=== PATIENT | female | born 1960 | race Caucasian/White ===

== ENCOUNTER 2017-02-04 18:30 | Emergency (ER) | payer BC ==
[2017-02-04] MEDS ORDERED: Naloxone 2 MG/2 ML Syringe ONE (18:41)
[2017-02-04] MEDS ORDERED: Sodium Chloride 0.9% 1,000 ML IV ONE ×2 (19:00→19:55)
[2017-02-04] MEDS ORDERED: Flumazenil 0.1 MG/ML 5 ML MDV ONE ×3 (19:01→19:17)
[2017-02-04] MEDS ORDERED: Flumazenil 0.1 MG/ML 5 ML MDV IVPUSH ONE ×2 (19:02→19:08)
[2017-02-04] MEDS ORDERED: Ondansetron 4 MG/2 ML SDV ONE ×2 (19:05→19:13)
--- NOTE | 2017-02-04 19:19 | EDM.PDOC ---
ED HPI GENERAL MEDICAL PROBLEM - General Chief Complaint: Neuro Symptoms/Deficits Stated Complaint: [facility] Time Seen by Provider: 02/04/17 18:34 Source of Information: Reports: Patient, EMS, EMS Notes Reviewed History Limitations: Reports: Altered Mental Status - History of Present Illness INITIAL COMMENTS - FREE TEXT/NARRATIVE: Patient is a 56-year-old female who was found by her at approximately 1725 laying face first on the deck. Patient was unconscious difficult to arouse. was concerned she may have had a stroke. No foul play was suspected. 911 was called and ambulance arrived to find the patient with an altered mental status concerning for stroke. Initially O2 sats were 80% on room air. Patient was placed on oxygen and received Narcan 2 mg IV. Patient's mentation and O2 sats improved. spoke with the patient at 1625 with no concerns at that point. Patient is a known alcoholic and user of benzodiazepines and narcotics. 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 Last known time the patient was well was at 1625. Patient has no history of suicidal mediations, suicide attempts, inpatient treatment for chemical dependency/psych. Patient sees a provider at [facility] and also [facility] to obtain prescriptions for benzodiazepines/narcotics. Past medical history: Alcoholic, anxiety, depression, addiction to benzodiazepines, hypertension Current medications include alprazolam 1 mg as needed, Klonopin 0.2 mg by mouth twice a day, Ativan 1 mg 3 times a day, Lopressor 50 mg twice a day. Right Hand Pain Score (Numeric/FACES): 5 - Related Data Allergies Allergy/AdvReac Type Severity Reaction Status Date / Time No Known Allergies Allergy Verified 02/04/17 19:49 Home Meds: Home Meds ALPRAZolam [Alprazolam] 1 dose PO ASDIRECTED 02/04/17 [History] ClonazePAM [KlonoPIN] 0.2 dose PO BID 02/04/17 [History] LORazepam [Ativan] 1 mg PO TID PRN 02/04/17 [History] Metoprolol Tartrate [Lopressor] 50 mg PO BID 02/04/17 [History] ED ROS GENERAL - Review of Systems Review Of Systems: See Below Respiratory: Reports: Cough, Sputum. Denies: Shortness of Breath Cardiovascular: Denies: Chest Pain GI/Abdominal: Denies: Abdominal Pain, Nausea, Vomiting : Denies: Dysuria Musculoskeletal: Reports: Other (right thumb pain. ) Skin: Reports: Other (Superficial abrasions to the left cheek, forehead, chin, right shoulder, knees bilaterally, right hand. Minimal swelling present. No pain with palpation. No bony abnormalities. Mild pain with palpation of the right thumb. ) Neurological: Reports: Confusion ED EXAM, NEURO - Physical Exam Exam: See Below Exam Limited By: Intoxication General Appearance: Lethargic Eye Exam: Bilateral Eye: EOMI, Nystagmus (none found), PERRL Ears: Normal External Exam, Normal Canal, Hearing Grossly Normal Nose: Normal Inspection, Normal Mucosa, No Blood, Other (Nasolabial folds are intact.) Throat/Mouth: Normal Teeth, No Airway Compromise, Other (no tongue trauma. Uvula midline. ). No: Normal Voice (slurred speech) Head Exam: Facial Swelling, Facial Tenderness Neck: Normal Inspection, Supple, Non-Tender, Other (C collar in place.) Respiratory/Chest: Lungs Clear, Normal Breath Sounds, No Accessory Muscle Use, Chest Non-Tender, Other (Increased respiratory rate) Cardiovascular: Normal Peripheral Pulses, No Murmur, Tachycardia GI/Abdominal: Normal Bowel Sounds, Soft, Non-Tender, No Organomegaly, No Distention Neurological: Normal Dorsiflexion, CN II-XII Intact, Normal Plantar Flexion, No Motor/Sensory Deficits, Other (Lethargic, moves all extremities, equal yard brakeman bilaterally to the upper extremities, no weakness noted to the lower extremities. Sensory/motor intact.). No: Oriented x 3 Back Exam: Normal Inspection. No: Paraspinal Tenderness, Vertebral Tenderness Extremities: Normal Range of Motion, No Pedal Edema, Normal Capillary Refill, Other (Mild tenderness to the right thumb. No tenderness noted with palpation to the extremities with palpation.) Skin Exam: Warm, Dry, Normal Color, No Rash Course - Vital Signs Last Recorded V/S: Last Vital Signs Temp 97.8 F 02/04/17 22:30 Pulse 106 H 02/04/17 22:30 Resp 18 02/04/17 22:30 BP 122/80 02/04/17 22:30 Pulse Ox 94 L 02/04/17 22:30 - Orders/Labs/Meds Orders: Active Orders 24 hr Category Date Time Status EKG Documentation Completion [RC] STAT Care 02/04/17 18:39 Active Cervical Spine wo Cont [CT] Stat Exams 02/04/17 18:39 Taken Chest 1V Frontal [CR] Stat Exams 02/04/17 18:39 Taken Fingers Thumb Rt F5 [CR] Stat Exams 02/04/17 18:39 Taken Head wo Cont [CT] Stat Exams 02/04/17 18:39 Taken Labs: Laboratory Tests 02/04/17 02/04/17 02/04/17 Range/Units 18:50 18:50 18:50 WBC 8.19 (3.98-10.04) K/mm3 RBC 4.59 (3.98-5.22) M/mm3 Hgb 14.1 (11.2-15.7) gm/L Hct 42.4 (34.1-44.9) % MCV 92.4 (79.4-94.8) fl MCH 30.7 (25.6-32.2) pg MCHC 33.3 (32.2-35.5) g/dl RDW Std Deviation 43.2 (36.4-46.3) fL Plt Count 302 (182-369) K/mm3 MPV 9.2 L (9.4-12.3) fl Neut % (Auto) 63.0 (34.0-71.1) % Lymph % (Auto) 30.4 (19.3-51.7) % [place] % (Auto) 5.0 (4.7-12.5) % Eos % (Auto) 1.2 (0.7-5.8) Baso % (Auto) 0.2 (0.1-1.2) % Neut # (Auto) 5.15 (1.56-6.13) K/mm3 Lymph # (Auto) 2.49 (1.18-3.74) K/mm3 [place] # (Auto) 0.41 H (0.24-0.36) K/mm3 Eos # (Auto) 0.10 (0.04-0.36) K/mm3 Baso # (Auto) 0.02 (0.01-0.08) K/mm3 PT 10.4 (8.0-13.0) SECONDS INR 0.96 APTT 27 (22-36) SECONDS Puncture Site ABG pH (7.35-7.45) ABG pCO2 (35.0-45.0) mmHg ABG pO2 (80.0-100.0) mmHg ABG HCO3 (22.0-26.0) meq/L ABG O2 Saturation (96.0-97.0) % ABG Base Excess (-2-2.0) Neto Test A-a Gradient mmHg O2 Delivery Device Sodium 138 (136-145) mEq/L Potassium 3.1 L (3.5-5.1) mEq/L Chloride 102 (98-107) mEq/L Carbon Dioxide 26 (21-32) mEq/L Anion Gap 13.1 (5-15) BUN 11 (7-18) mg/dL Creatinine 0.9 (0.55-1.02) mg/dL Est Cr Clr Drug Dosing 57.74 mL/min Estimated GFR (MDRD) > 60 (>60) mL/min BUN/Creatinine Ratio 12.2 L (14-18) Glucose 98 (74-106) mg/dL POC Glucose (70-105) mg/dL Calcium 9.0 (8.5-10.1) mg/dL Magnesium (1.8-2.4) mg/dl Total Bilirubin 0.2 (0.2-1.0) mg/dL AST 23 (15-37) U/L ALT 32 (14-59) U/L Alkaline Phosphatase 71 (46-116) U/L Creatine Kinase (26-192) U/L Troponin I < 0.017 (0.00-0.056) ng/mL C-Reactive Protein 0.3 (<1.0) mg/dL Total Protein 7.2 (6.4-8.2) g/dl Albumin 3.8 (3.4-5.0) g/dl Globulin 3.4 gm/dL Albumin/Globulin Ratio 1.1 (1-2) TSH 3rd Generation 0.436 (0.358-3.74) uIU/mL Urine Color (Yellow) Urine Appearance (Clear) Urine pH (5.0-8.0) Ur Specific [place] (1.005-1.030) Urine Protein (Negative) Urine Glucose (UA) (Negative) Urine Ketones (Negative) Urine Occult Blood (Negative) Urine Nitrite (Negative) Urine Bilirubin (Negative) Urine Urobilinogen (0.2-1.0) Ur Leukocyte Esterase (Negative) Urine RBC (0-5) /hpf Urine WBC (0-5) /hpf Ur Epithelial Cells (0-5) /hpf Urine Bacteria (FEW) /hpf Urine Mucus (FEW) /hpf Urine Opiates Screen (NEGATIVE) Ur Buprenorphine Scrn (NEGATIVE) Ur Oxycodone Screen (NEGATIVE) Urine Methadone Screen (NEGATIVE) Ur Propoxyphene Screen (NEGATIVE) Ur Barbiturates Screen (NEGATIVE) Ur Tricyclics Screen (NEGATIVE) Ur Phencyclidine Scrn (NEGATIVE) Ur Amphetamine Screen (NEGATIVE) U Methamphetamines Scrn (NEGATIVE) U Benzodiazepines Scrn (NEGATIVE) U Cocaine Metab Screen (NEGATIVE) U Marijuana (THC) Screen (NEGATIVE) Ethyl Alcohol 0.24 (0.00) gm% 02/04/17 02/04/17 02/04/17 Range/Units 18:50 18:50 18:50 WBC (3.98-10.04) K/mm3 RBC (3.98-5.22) M/mm3 Hgb (11.2-15.7) gm/L Hct (34.1-44.9) % MCV (79.4-94.8) fl MCH (25.6-32.2) pg MCHC (32.2-35.5) g/dl RDW Std Deviation (36.4-46.3) fL Plt Count (182-369) K/mm3 MPV (9.4-12.3) fl Neut % (Auto) (34.0-71.1) % Lymph % (Auto) (19.3-51.7) % [place] % (Auto) (4.7-12.5) % Eos % (Auto) (0.7-5.8) Baso % (Auto) (0.1-1.2) % Neut # (Auto) (1.56-6.13) K/mm3 Lymph # (Auto) (1.18-3.74) K/mm3 [place] # (Auto) (0.24-0.36) K/mm3 Eos # (Auto) (0.04-0.36) K/mm3 Baso # (Auto) (0.01-0.08) K/mm3 PT (8.0-13.0) SECONDS INR APTT (22-36) SECONDS Puncture Site ABG pH (7.35-7.45) ABG pCO2 (35.0-45.0) mmHg ABG pO2 (80.0-100.0) mmHg ABG HCO3 (22.0-26.0) meq/L ABG O2 Saturation (96.0-97.0) % ABG Base Excess (-2-2.0) Neto Test A-a Gradient mmHg O2 Delivery Device Sodium (136-145) mEq/L Potassium (3.5-5.1) mEq/L Chloride (98-107) mEq/L Carbon Dioxide (21-32) mEq/L Anion Gap (5-15) BUN (7-18) mg/dL Creatinine (0.55-1.02) mg/dL Est Cr Clr Drug Dosing mL/min Estimated GFR (MDRD) (>60) mL/min BUN/Creatinine Ratio (14-18) Glucose (74-106) mg/dL POC Glucose 103 (70-105) mg/dL Calcium (8.5-10.1) mg/dL Magnesium 1.8 (1.8-2.4) mg/dl Total Bilirubin (0.2-1.0) mg/dL AST (15-37) U/L ALT (14-59) U/L Alkaline Phosphatase (46-116) U/L Creatine Kinase 126 (26-192) U/L Troponin I (0.00-0.056) ng/mL C-Reactive Protein (<1.0) mg/dL Total Protein (6.4-8.2) g/dl Albumin (3.4-5.0) g/dl Globulin gm/dL Albumin/Globulin Ratio (1-2) TSH 3rd Generation (0.358-3.74) uIU/mL Urine Color (Yellow) Urine Appearance (Clear) Urine pH (5.0-8.0) Ur Specific [place] (1.005-1.030) Urine Protein (Negative) Urine Glucose (UA) (Negative) Urine Ketones (Negative) Urine Occult Blood (Negative) Urine Nitrite (Negative) Urine Bilirubin (Negative) Urine Urobilinogen (0.2-1.0) Ur Leukocyte Esterase (Negative) Urine RBC (0-5) /hpf Urine WBC (0-5) /hpf Ur Epithelial Cells (0-5) /hpf Urine Bacteria (FEW) /hpf Urine Mucus (FEW) /hpf Urine Opiates Screen (NEGATIVE) Ur Buprenorphine Scrn (NEGATIVE) Ur Oxycodone Screen (NEGATIVE) Urine Methadone Screen (NEGATIVE) Ur Propoxyphene Screen (NEGATIVE) Ur Barbiturates Screen (NEGATIVE) Ur Tricyclics Screen (NEGATIVE) Ur Phencyclidine Scrn (NEGATIVE) Ur Amphetamine Screen (NEGATIVE) U Methamphetamines Scrn (NEGATIVE) U Benzodiazepines Scrn (NEGATIVE) U Cocaine Metab Screen (NEGATIVE) U Marijuana (THC) Screen (NEGATIVE) Ethyl Alcohol (0.00) gm% 02/04/17 02/04/17 02/04/17 Range/Units 19:18 19:25 19:25 WBC (3.98-10.04) K/mm3 RBC (3.98-5.22) M/mm3 Hgb (11.2-15.7) gm/L Hct (34.1-44.9) % MCV (79.4-94.8) fl MCH (25.6-32.2) pg MCHC (32.2-35.5) g/dl RDW Std Deviation (36.4-46.3) fL Plt Count (182-369) K/mm3 MPV (9.4-12.3) fl Neut % (Auto) (34.0-71.1) % Lymph % (Auto) (19.3-51.7) % [place] % (Auto) (4.7-12.5) % Eos % (Auto) (0.7-5.8) Baso % (Auto) (0.1-1.2) % Neut # (Auto) (1.56-6.13) K/mm3 Lymph # (Auto) (1.18-3.74) K/mm3 [place] # (Auto) (0.24-0.36) K/mm3 Eos # (Auto) (0.04-0.36) K/mm3 Baso # (Auto) (0.01-0.08) K/mm3 PT (8.0-13.0) SECONDS INR APTT (22-36) SECONDS Puncture Site Rt radial ABG pH 7.37 (7.35-7.45) ABG pCO2 39.3 (35.0-45.0) mmHg ABG pO2 79.0 L (80.0-100.0) mmHg ABG HCO3 22.2 (22.0-26.0) meq/L ABG O2 Saturation 95.6 L (96.0-97.0) % ABG Base Excess -2.2 L (-2-2.0) Neto Test Positive A-a Gradient 102 mmHg O2 Delivery Device Cannula Sodium (136-145) mEq/L Potassium (3.5-5.1) mEq/L Chloride (98-107) mEq/L Carbon Dioxide (21-32) mEq/L Anion Gap (5-15) BUN (7-18) mg/dL Creatinine (0.55-1.02) mg/dL Est Cr Clr Drug Dosing mL/min Estimated GFR (MDRD) (>60) mL/min BUN/Creatinine Ratio (14-18) Glucose (74-106) mg/dL POC Glucose (70-105) mg/dL Calcium (8.5-10.1) mg/dL Magnesium (1.8-2.4) mg/dl Total Bilirubin (0.2-1.0) mg/dL AST (15-37) U/L ALT (14-59) U/L Alkaline Phosphatase (46-116) U/L Creatine Kinase (26-192) U/L Troponin I (0.00-0.056) ng/mL C-Reactive Protein (<1.0) mg/dL Total Protein (6.4-8.2) g/dl Albumin (3.4-5.0) g/dl Globulin gm/dL Albumin/Globulin Ratio (1-2) TSH 3rd Generation (0.358-3.74) uIU/mL Urine Color Light yellow (Yellow) Urine Appearance Clear (Clear) Urine pH 6.0 (5.0-8.0) Ur Specific [place] 1.020 (1.005-1.030) Urine Protein Negative (Negative) Urine Glucose (UA) Negative (Negative) Urine Ketones Negative (Negative) Urine Occult Blood Negative (Negative) Urine Nitrite Negative (Negative) Urine Bilirubin Negative (Negative) Urine Urobilinogen 0.2 (0.2-1.0) Ur Leukocyte Esterase Negative (Negative) Urine RBC Not seen (0-5) /hpf Urine WBC 0-5 (0-5) /hpf Ur Epithelial Cells 0-5 (0-5) /hpf Urine Bacteria Not seen (FEW) /hpf Urine Mucus Not seen (FEW) /hpf Urine Opiates Screen Negative (NEGATIVE) Ur Buprenorphine Scrn Negative (NEGATIVE) Ur Oxycodone Screen Negative (NEGATIVE) Urine Methadone Screen Negative (NEGATIVE) Ur Propoxyphene Screen Negative (NEGATIVE) Ur Barbiturates Screen Negative (NEGATIVE) Ur Tricyclics Screen Negative (NEGATIVE) Ur Phencyclidine Scrn Negative (NEGATIVE) Ur Amphetamine Screen Negative (NEGATIVE) U Methamphetamines Scrn Negative (NEGATIVE) U Benzodiazepines Scrn Presumptive positive H (NEGATIVE) U Cocaine Metab Screen Negative (NEGATIVE) U Marijuana (THC) Screen Negative (NEGATIVE) Ethyl Alcohol (0.00) gm% Meds: Medications Discontinued Medications Generic Name Dose Route Start Last Admin Trade Name Freq PRN Reason Stop Dose Admin Flumazenil Confirm 02/04/17 19:01 02/04/17 20:09 Romazicon Administered 02/04/17 19:02 Not Given Dose 1 mg .ROUTE .STK-MED ONE Flumazenil Confirm 02/04/17 19:17 02/04/17 20:09 Romazicon Administered 02/04/17 19:18 Not Given Dose 0.5 mg .ROUTE .STK-MED ONE Flumazenil Confirm 02/04/17 19:13 02/04/17 20:09 Romazicon Administered 02/04/17 19:14 Not Given Dose 1 mg .ROUTE .STK-MED ONE Flumazenil 0.5 mg 02/04/17 19:02 02/04/17 19:02 Romazicon IVPUSH 02/04/17 19:03 0.5 mg ONETIME ONE Administration Flumazenil 0.5 mg 02/04/17 19:08 02/04/17 19:08 Romazicon IVPUSH 02/04/17 19:09 0.5 mg ONETIME ONE Administration Sodium Chloride 1,000 mls @ 999 mls/hr 02/04/17 19:00 02/04/17 19:00 Normal Saline IV 02/04/17 20:00 999 mls/hr ONETIME ONE Administration Sodium Chloride 1,000 mls @ 999 mls/hr 02/04/17 19:55 02/04/17 19:55 Normal Saline IV 02/04/17 20:55 999 mls/hr ONETIME ONE Administration Naloxone HCl Confirm 02/04/17 18:41 02/04/17 20:09 Narcan Administered 02/04/17 18:42 Not Given Dose 2 mg .ROUTE .STK-MED ONE Naloxone HCl 0.5 mg 02/04/17 18:55 02/04/17 18:55 Narcan IVPUSH 02/04/17 18:56 0.5 mg ONETIME ONE Administration Naloxone HCl 0.5 mg 02/04/17 19:00 02/04/17 19:00 Narcan IVPUSH 02/04/17 19:01 0.5 mg ONETIME ONE Administration Ondansetron HCl Confirm 02/04/17 19:05 02/04/17 20:09 Zofran Administered 02/04/17 19:06 Not Given Dose 4 mg .ROUTE .STK-MED ONE Ondansetron HCl Confirm 02/04/17 19:13 02/04/17 20:09 Zofran Administered 02/04/17 19:14 Not Given Dose 4 mg .ROUTE .STK-MED ONE Ondansetron HCl 4 mg 02/04/17 20:03 02/04/17 19:11 Zofran IVPUSH 02/04/17 20:04 4 mg ONETIME ONE Administration - Re-Assessments/Exams Free Text/Narrative Re-Assessment/Exam: Patient arrives via ambulance fully spinal immobilized. Patient is a GCS of 10 with slurred speech and increased respirations. Dried vomit noted to her face. Vital signs: Blood pressure 123/92, heart rate 110, respiratory rate 31, SPO2 96 % on nasal cannula 4 L/m. Patient is moving all extremities. Patient received in total 1 mg of Narcan and 1 mg of Romazicon IVP. Patient's mentation status improved. She came more alert and was able to answer all questions appropriate. She moved all extremities. Nasolabial fold intact. 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 No concerns for stroke. Patient vomited and was placed in the right side with airway suctioned. Zofran 4 mg IVP ordered. Labs reviewed: CBC is essentially normal. Coags within normal limits. Sodium 138 , potassium mildly low at 3.1, AG is 13.1, creatinine 0.9 glucose 98, liver function tests are within normal limits, troponin less than 0.017, CRP 0.3, TSH is 0.436, UA negative for infection. Toxicology screen positive for benzodiazepines. Serum EtOH 0.24. Blood gas obtained with a pH of 7.37, PCO2 of 39.3, PO2 79, O2 saturations at 95.6, base excess -2.2. CT of the cervical spine impression: Degenerative changes. No acute osseous abnormality. CT of the head without contrast impression no acute intracranial advise noted. Chest x-ray reviewed with Dr. Jennings with no acute findings. Final interpretation pending. X-ray of the thumb did not reveal any acute bony abnormalities. EKG sinus rhythm at a rate of [address] changes noted. 2100 Patient's vital signs have been stable. Mentation improving. Patient is alert and oriented 3. She does not want inpatient treatment for alcohol or chemical dependency. Patient states she did not intentionally take her medications with alcohol to try and kill herself. 02/04/17 21:[address] Che senior applications architect hospitalists. He will see the patient in the E.D. [id number]/04/[id number] Dr. Che spoke with and sister. Family has elected to take the patient home. will take the patient's prescription medications away and ensure patient is not consuming alcohol. He will control all her prescription medications. Plan is to have the patient see her PCP Monday as scheduled to discuss placement into [facility] for outpatient chemical dependency treatment. Dr. Che answered all questions in detail. See consult note for further details. 2200 Patient alert and notes 3. Vital signs are stable. Patient got up on her own accord and ambulated with no difficulties. We'll discharge patient home with instructions as documented. Departure - Departure Time of Disposition: 22:06 Disposition: Home, Self-Care 01 Condition: Fair Clinical Impression: Alcohol abuse, Benzodiazepine abuse Alcohol intoxication Qualifiers: Complication of substance-induced condition: uncomplicated Qualified Code(s): F10.920 - Alcohol use, unspecified with intoxication, uncomplicated Overdose of benzodiazepine Qualifiers: Encounter type: initial encounter Injury intent: accidental or unintentional Qualified Code(s): T42.4X1A - Poisoning by benzodiazepines, accidental ( unintentional), initial encounter - Discharge Information Instructions: Alcohol Intoxication, [id number], Drug Overdose Referrals: PCP,None [Primary Care Provider] - Forms: ED Department Discharge Additional Instructions: Will have your be in control of all your home medications ensuring that you are taking appropriately. If you consume alcohol none of these medications should be administered except for the metoprolol. Follow-up with your PCP this Monday to discuss treatment for alcohol and chemical dependency. Beware combination of alcohol and benzodiazepines use can lead to . Fortunately this evening your found and prevented your . If you need you need any further assistance please return back to the ED. No driving this evening. - My Orders Last 24 Hours: My Active Orders 02/04/17 18:39 EKG Documentation Completion [RC] STAT Cervical Spine wo Cont [CT] Stat Chest 1V Frontal [CR] Stat Fingers Thumb Rt F5 [CR] Stat Head wo Cont [CT] Stat - Assessment/Plan Last 24 Hours: My Active Orders 02/04/17 18:39 EKG Documentation Completion [RC] STAT Cervical Spine wo Cont [CT] Stat Chest 1V Frontal [CR] Stat Fingers Thumb Rt F5 [CR] Stat Head wo Cont [CT] Stat
[2017-02-04] MEDS ORDERED: Ondansetron 4 MG/2 ML SDV IVPUSH ONE (20:03)
[2017-02-04 23:24] VITALS: BP 122/80
--- NOTE | 2017-02-05 18:24 | CR ---
Right thumb: Three views of the right thumb were obtained. Comparison: No previous thumb study. Joint spaces are maintained. No discrete fracture, dislocation or other bony abnormality is identified. Impression: 1. No abnormality is identified on right thumb study. Diagnostic code #1
--- NOTE | 2017-02-05 18:24 | CR ---
Chest: Frontal view of the chest was obtained. Comparison: No prior chest x-ray. Heart size and mediastinum are within normal limits. Slight increased density within the left upper chest is seen. Uncertain if this is real or due to artifact from patient rotation. Lungs otherwise are clear. Bony structures show scoliosis within the spine. Impression: 1. Slight increased density within the left upper chest, uncertain if this is real or due to artifact from rotation. If patient's symptoms warrant further imaging, two-view chest x-ray would be helpful. 2. Other incidental findings. Diagnostic code #3
--- NOTE | 2017-02-05 18:24 | CT ---
CT cervical spine Technique: Multiple axial sections were obtained from above C1 inferiorly to the bottom of T1. Reconstructed sagittal and coronal images were reviewed. Findings: Visualized mastoid sinuses and middle ear cavities are clear. Posterior skull base is intact. Mild disc space narrowing is noted at C5-C6 and C6-C7. Anterior osteophytes noted at C5-C6 and C6-C7. Small posterior osteophytes noted at C5-C6 and C6-C7. Vertebral body heights are maintained. Mild degenerative change is noted between the dens and anterior arch of C1. Mild to moderate bilateral neural foraminal stenosis noted at C5-C6. Other neural foramina are patent. No bony central canal stenosis is seen. No acute fracture is appreciated. Slight degenerative change is scattered within the apophyseal joints. Incomplete posterior arch of C1 is seen which is normal variant. Impression: 1. Degenerative change as described above. 2. No acute abnormality is identified on CT study of the cervical spine. Diagnostic code #2 Agree with preliminary report issued by [employer] ([employer] preliminary report dictated on 02/04/17, 7:50 PM Central Time)
--- NOTE | 2017-02-05 18:24 | CT ---
Head CT Technique: Multiple axial sections through the brain were obtained. Intravenous contrast was not utilized. Comparison: No previous intracranial imaging is available. Findings: Ventricles along with basal cisterns and sulci over the convexities are within normal limits for the patient's age. No abnormal parenchymal densities are seen. No evidence of intracranial hemorrhage. No midline shift or mass effect is seen. Bone window settings were reviewed which show no acute calvarial abnormality. Visualized sinuses are clear. Impression: 1. Nothing acute is identified on noncontrast head CT exam. Diagnostic code #1
== END 2017-02-04 22:30 | disposition home or self-care (01) ==
LOC: JD.ED 18:30
DX: T42.4X1A Poisoning by benzodiazepines, accidental (unintentional), initial encounter (principal); F10.120 Alcohol abuse with intoxication, uncomplicated; I10 Essential (primary) hypertension; F32.9 Major depressive disorder, single episode, unspecified; Z79.899 Other long term (current) drug therapy
CPT/HCPCS: 36415; 36600; 70450; 71010; 72125; 73140; 80053; 80306; 81001; 82550; 82803; 82962; 83735; 84443; 84484; 85025; 85610; 85730; 86140; 93005; 96361; 96374; 96375; 99285; G0480; J2310; J2405; J7040; P9612; J3490

== ENCOUNTER 2020-08-04 08:57 | Emergency (ER) | payer BC ==
[2020-08-04] MEDS ORDERED: HYDROmorphone 1 MG/ML Syringe IM ONE (09:55)
--- NOTE | 2020-08-04 09:59 | CR ---
Right shoulder: 3 views of the right shoulder were obtained. Comparison: No prior right shoulder study is available. Fracture is identified involving the base of the greater tuberosity. Alignment remains close to anatomic. Questionable fracture within the surgical neck is noted which appears anatomic. No dislocation is seen. No additional abnormality is noted. Impression: 1. Nondisplaced fracture within the base of the greater tuberosity. 2. Equivocal nondisplaced fracture within the surgical neck. This would have to be confirmed with CT if clinically needed. Diagnostic code #3
--- NOTE | 2020-08-04 10:30 | EDM.PDOC ---
ED HPI GENERAL MEDICAL PROBLEM - General Chief Complaint: Upper Extremity Injury/Pain Stated Complaint: RT SHOULDER INJURY Time Seen by Provider: 08/04/20 09:08 Source of Information: Reports: Patient History Limitations: Reports: No Limitations - History of Present Illness INITIAL COMMENTS - FREE TEXT/NARRATIVE: The patient presents with right shoulder pain. She slipped and fell on the ice and landed on her right arm and shoulder. She did not hit her head and had no LOC. She has no neck pain. She does have pain to her right shoulder with some swelling. She is left handed. She has no chest pain, abdominal pain or leg pain. Onset: Sudden Duration: Minutes: Location: Reports: Upper Extremity, Right (shoulder) Quality: Reports: Sharp Severity: Severe Improves with: Reports: Immobilization Worsens with: Reports: Movement Context: Reports: Trauma (slipped and fell on the ice) Associated Symptoms: Reports: No Other Symptoms Right Shoulder Pain Score (Numeric/FACES): 2 - Related Data Allergies Allergy/AdvReac Type Severity Reaction Status Date / Time pregabalin [From Lyrica] Allergy Itching Verified 08/04/20 09:08 Home Meds: Home Meds ALPRAZolam [Alprazolam] 1 mg PO TID 02/04/17 [History] Gabapentin [Neurontin] 100 mg PO TID 08/04/20 [History] Hydrocodone/Acetaminophen [Hydrocodone-Acetamin 10-325 mg] 10 - 325 mg PO 5XDAY 08/04/20 [History] cloNIDine HCL [Clonidine HCl] 0.2 mg PO BID 08/04/20 [History] oxyCODONE 5 mg PO 5XDAY 08/04/20 [History] Past Medical History HEENT History: Reports: Impaired Vision Other HEENT History: wears contacts. 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: Musculoskeletal History: Reports: Back Pain, Chronic, Fracture, Osteoarthritis, Osteoporosis Other Musculoskeletal History: Fx back Psychiatric History: Reports: Anxiety, Depression - Infectious Disease History Infectious Disease History: Reports: Chicken Pox, Mumps, Shingles Social & Family History - Family History Family Medical History: No Pertinent Family History - Tobacco Use Tobacco Use Status *Q: Current Every Day Tobacco User Years of Tobacco use: 45 Packs/Tins Daily: 1 Second Hand Smoke Exposure: No - Caffeine Use Caffeine Use: Reports: Coffee, Energy Drinks, Tea - Recreational Drug Use Recreational Drug Use: No Review of Systems - Review of Systems Review Of Systems: See Below Constitutional: Reports: No Symptoms Eyes: Reports: No Symptoms Ears: Reports: No Symptoms Nose: Reports: No Symptoms Mouth/Throat: Reports: No Symptoms Respiratory: Reports: No Symptoms Cardiovascular: Reports: No Symptoms GI/Abdominal: Reports: No Symptoms Musculoskeletal: Reports: Shoulder Pain (right) ED EXAM, GENERAL - Physical Exam Exam: See Below Exam Limited By: No Limitations General Appearance: Alert, No Apparent Distress Ears: Normal External Exam Nose: Normal Inspection Head: Atraumatic, Normocephalic Neck: Normal Inspection, Supple, Non-Tender Respiratory/Chest: No Respiratory Distress, Lungs Clear, Normal Breath Sounds Cardiovascular: Regular Rate, Rhythm, No Edema, No Murmur GI/Abdominal: Soft, Non-Tender, No Organomegaly, No Mass Extremities: Other (Pain upon palpation and edema to the right shoulder. Good sensation and pulses distally.) Neurological: Alert, Oriented, No Motor/Sensory Deficits Course - Vital Signs Last Recorded V/S: Last Vital Signs Temp 98.0 F 08/04/20 09:05 Pulse 70 08/04/20 10:30 Resp 18 08/04/20 10:30 BP 118/75 08/04/20 10:30 Pulse Ox 95 08/04/20 10:30 - Orders/Labs/Meds Orders: Active Orders 24 hr Category Date Time Status Shoulder wo Cont Rt [CT] Stat Exams 08/04/20 09:51 Taken Durable Medical Equipment for Discharge [DME for Oth 08/04/20 10:36 Ordered Discharge] [COMM] Stat Meds: Medications Discontinued Medications Generic Name Dose Route Start Last Admin Trade Name Brook PRN Reason Stop Dose Admin Hydromorphone HCl 1 mg 08/04/20 09:55 08/04/20 10:00 Dilaudid IM 08/04/20 09:56 1 mg ONETIME ONE Administration - Re-Assessments/Exams Free Text/Narrative Re-Assessment/Exam: 08/04/20 10:29 I ordered a shoulder x-ray and it showed a proximal humerus fracture. I called Dr Ovalles and he wanted a CT of her shoulder and he will see her in the office and he may have to take her to surgery. I have ordered the CT of her shoulder. Departure - Departure Time of Disposition: 10:40 Disposition: Home, Self-Care 01 Condition: Good Clinical Impression: Fall Qualifiers: Encounter type: initial encounter Qualified Code(s): W19.XXXA - Unspecified fall, initial encounter Proximal humerus fracture Qualifiers: Encounter type: initial encounter Fracture type: closed Fracture morphology: other fracture Fracture alignment: nondisplaced Laterality: right Qualified Code(s): S42.294A - Other nondisplaced fracture of upper end of right humerus, initial encounter for closed fracture - Discharge Information *PRESCRIPTION DRUG MONITORING PROGRAM REVIEWED*: Not Applicable *COPY OF PRESCRIPTION DRUG MONITORING REPORT IN PATIENT NAVI: Not Applicable Referrals: Michelle Valderrama MD [Primary Care Provider] - Marino Ovalles MD [Physician] - 1 Week Forms: ED Department Discharge Additional Instructions: Ice your shoulder for 15 minutes 3 times per day. Take tylenol or motrin for pain or your prescribed pain meds. Call Dr Ovalles's office today to set up a follow up appointment. Please return if you are worse. Sepsis Event Note (ED) - Evaluation Sepsis Screening Result: No Definite Risk - Focused Exam Vital Signs: Vital Signs Temp Pulse Resp BP Pulse Ox 08/04/20 10:30 70 18 118/75 95 08/04/20 09:05 98.0 F 80 18 96/77 98 - My Orders Last 24 Hours: My Active Orders 08/04/20 09:51 Shoulder wo Cont Rt [CT] Stat 08/04/20 10:36 Durable Medical Equipment for Discharge [DME for Discharge] [COMM] Stat - Assessment/Plan Last 24 Hours: My Active Orders 08/04/20 09:51 Shoulder wo Cont Rt [CT] Stat 08/04/20 10:36 Durable Medical Equipment for Discharge [DME for Discharge] [COMM] Stat
[2020-08-04 10:57] VITALS: BP 121/69; PULSE 68
--- NOTE | 2020-08-04 11:27 | CT ---
CT right shoulder Technique: Multiple axial sections through the right shoulder were obtained. Reconstructed coronal and sagittal images were obtained. Comparison: Prior shoulder radiographic study performed earlier on the same day (9:26 AM). Findings: Fracture is identified within the surgical neck which shows slight lateral impaction. Fracture is also noted within the base of the greater tuberosity. Glenohumeral alignment is normal. Acromioclavicular joint is normal. No definite rib abnormality is seen when allowing for motion artifact. No scapular fracture is appreciated. Impression: 1. Fracture within the base of the greater tuberosity and within the surgical neck. Alignment remains close to anatomic. Diagnostic code #3 MTDD
== END 2020-08-04 10:55 | disposition home or self-care (01) ==
LOC: JD.ED 08:57
DX: S42.254A Nondisplaced fracture of greater tuberosity of right humerus, initial encounter for closed fracture (principal); I10 Essential (primary) hypertension; Z72.0 Tobacco use; Z79.899 Other long term (current) drug therapy; Z88.8 Allergy status to other drugs, medicaments and biological substances; W00.0XXA Fall on same level due to ice and snow, initial encounter
CPT/HCPCS: 73030; 73200; 96372; 99284; J1170

== ENCOUNTER 2020-08-13 07:12 | Day surgery (SDC) | payer BC ==
[~2020-08-13 07:12] MED LIST: Bupivacaine 0.25% 10 ML SDV ONE; Bupivacaine 0.75% 30 ML SDV ONE; Dexmedetomidine 200 MCG/2 ML SDV ONE; Lactated Ringers 1,000 ML IV SCH; Lidocaine 1%/Sod Bicarbonate in NS 8.4% 1 ML Syringe IDERM PRN; Lidocaine 2% with EPINEPHrine 1:200,000 20 ML SDV ONE; Midazolam 1 MG/ML 2 ML SDV ONE; Propofol 200 MG/20 ML SDV ONE; Sodium Chloride 0.9% 10 ML Syringe FLUSH PRN; Vancomycin 1 GM SDV ONE; fentaNYL 250 MCG/5 ML SDV ONE
--- NOTE | 2020-08-13 08:00 | PCM.PREANE ---
Preanesthetic Assessment - Procedure Proposed Procedure: Rt humerus ORIF - Anesthesia/Transfusion/Family Hx Anesthesia History: No Prior Anesthesia Transfusion History: No Prior Transfusion(s) - Review of Systems General: No Symptoms Pulmonary: No Symptoms Cardiovascular: No Symptoms Gastrointestinal: No Symptoms Neurological: No Symptoms Other: Reports: Depression, Anxiety - Physical Assessment NPO Status Date: 08/12/20 NPO Status Time: 21:00 Vital Signs: 189/85 85 97% ASA Class: 2 Mental Status: Alert & Oriented x3 Airway Class: Mallampati = 2 Dentition: Reports: Normal Dentition Thyro-Mental Finger Breadths: 3 Mouth Opening Finger Breadths: 3 ROM/Head Extension: Full Lungs: Clear to Auscultation, Normal Respiratory Effort Cardiovascular: Regular Rate, Regular Rhythm - Lab Values: Laboratory Last Values MRSA (PCR) Negative 08/11/20 09:28 - Allergies Allergies/Adverse Reactions: Allergies Allergy/AdvReac Type Severity Reaction Status Date / Time acetaminophen Allergy Cannot Verified 08/12/20 12:21 [From Tylenol-Codeine #3] Remember codeine Allergy Cannot Verified 08/12/20 12:21 Remember pregabalin [From Lyrica] Allergy Itching Verified 08/12/20 12:21 tramadol Allergy Itching Verified 08/12/20 12:21 - Acknowledgements Anesthesia Type Planned: General Anesthesia, Regional Block (interscalene for postoperative pain coverage), MAC Pt an Appropriate Candidate for the Planned Anesthesia: Yes Alternatives and Risks of Anesthesia Discussed w Pt/Guardian: Yes Pt/Guardian Understands and Agrees with Anesthesia Plan: Yes PreAnesthesia Questionnaire HEENT History: Reports: Impaired Vision Other HEENT History: wears contacts. 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: Musculoskeletal History: Reports: Back Pain, Chronic, Fracture, Osteoarthritis, Osteoporosis Other Musculoskeletal History: Fx back Neurological History: Reports: Other (See Below) Other Neuro History: thoracic compression fracture, foot paresthesia Psychiatric History: Reports: Anxiety, Depression, Other (See Below) Other Psychiatric History: insomnia Endocrine/Metabolic History: Reports: None Hematologic History: Reports: None Immunologic History: Reports: None Oncologic (Cancer) History: Reports: None Dermatologic History: Reports: None - Infectious Disease History Infectious Disease History: Reports: None - Past Surgical History Head Surgeries/Procedures: Reports: None Cardiovascular Surgical History: Reports: None Respiratory Surgical History: Reports: None GI Surgical History: Reports: None Female Surgical History: Reports: None Male Surgical History: Reports: None Endocrine Surgical History: Reports: None Neurological Surgical History: Reports: None Musculoskeletal Surgical History: Reports: None Oncologic Surgical History: Reports: None - SUBSTANCE USE Tobacco Use Status *Q: Never Tobacco User Recreational Drug Use History: No - HOME MEDS Home Medications: Home Meds ALPRAZolam [Alprazolam] 1 mg PO TID PRN 02/04/17 [History] Gabapentin [Neurontin] 100 mg PO TID 08/04/20 [History] Hydrocodone/Acetaminophen [Hydrocodone-Acetamin 10-325 mg] 1 tab PO Q4H PRN 08/04/20 [History] cloNIDine HCL [Clonidine HCl] 0.2 mg PO BID PRN 08/04/20 [History] Alendronate Sodium [Fosamax] 70 mg PO DAILY 08/12/20 [History] Baclofen 10 mg PO TID PRN 08/12/20 [History] Cholecalciferol (Vitamin D3) [Vitamin D3] 4,000 unit PO DAILY 08/12/20 [History] DULoxetine [Cymbalta] 30 mg PO DAILY 08/12/20 [History] DULoxetine [Cymbalta] 60 mg PO DAILY 08/12/20 [History] Multivitamin 1 tab PO DAILY 08/12/20 [History] oxyCODONE 5 - 10 mg PO Q6H PRN #30 08/12/20 [Rx] - CURRENT (IN HOUSE) MEDS Current Meds: Current Medications Lactated Ringer's (Ringers, Lactated) 1,000 mls @ 125 mls/hr IV ASDIRECTED STEPHANIE Stop: 08/13/20 23:00 Lidocaine/Sodium Bicarbonate (Buffered Lidocaine 1% In Ns 8.4%) 0.25 ml IDERM O NETIME PRN PRN Reason: Prior to IV Start Stop: 08/13/20 18:00 Sodium Chloride (Saline Flush) 10 ml FLUSH ASDIRECTED PRN PRN Reason: Keep Vein Open Stop: 08/13/20 18:00 Discontinued Medications Bupivacaine HCl (Sensorcaine-Mpf 0.75%) Confirm Administered Dose 30 ml .ROUTE .STK-MED ONE Stop: 08/13/20 06:36 Bupivacaine HCl (Sensorcaine-Mpf 0.25%) Confirm Administered Dose 30 ml .ROUTE .STK-MED ONE Stop: 08/13/20 07:01 Dexmedetomidine HCl (Precedex) Confirm Administered Dose 200 mcg .ROUTE .STK-MED ONE Stop: 08/13/20 06:38 Fentanyl (Sublimaze) Confirm Administered Dose 250 mcg .ROUTE .STK-MED ONE Stop: 08/13/20 06:50 Lactated Ringer's (Ringers, Lactated) 1,000 mls @ 125 mls/hr IV ASDIRECTED STEPHANIE Stop: 08/12/20 23:00 Lidocaine/Epinephrine (Xylocaine-Mpf 2%-Epi 1:200,000) Confirm Administered Dose 20 ml .ROUTE .STK-MED ONE Stop: 08/13/20 06:36 Lidocaine/Sodium Bicarbonate (Buffered Lidocaine 1% In Ns 8.4%) 0.25 ml IDERM ONETIME PRN PRN Reason: Prior to IV Start Stop: 08/12/20 18:00 Midazolam HCl (Versed 1 Mg/Ml) Confirm Administered Dose 6 mg .ROUTE .STK-MED ONE Stop: 08/13/20 06:50 Propofol (Diprivan 20 Ml) Confirm Administered Dose 600 mg .ROUTE .STK-MED ONE Stop: 08/13/20 06:53 Sodium Chloride (Saline Flush) 10 ml FLUSH ASDIRECTED PRN PRN Reason: Keep Vein Open Stop: 08/12/20 18:00 Tranexamic Acid (Cyklokapron) Confirm Administered Dose 1,000 mg .ROUTE .STK-MED ONE Stop: 08/13/20 07:01 Vancomycin HCl (Vancomycin) Confirm Administered Dose 1 gm .ROUTE .STK-MED ONE Stop: 08/13/20 07:01
[2020-08-13] MEDS ORDERED: ceFAZolin 1 GM Vial ONE (08:22)
[2020-08-13] MEDS ORDERED: Dexamethasone 4 MG/ML 5 ML MDV ONE (08:45)
[2020-08-13] MEDS ORDERED: Ondansetron 4 MG/2 ML SDV ONE (08:46)
--- NOTE | 2020-08-13 09:21 | PCM.PRNOTE ---
- Free Text/Narrative Note: Postoperative regional pain control requested by surgeon. Pre-op Dx: Right proximal humerus fracture. Surgical procedure: Right humerus ORIF Procedure: Rt Interscalene block with U/S guidance Requesting physician: Dr. Marino Sinclair Risks and benefits discussed with the patient preoperatively including infection, bleeding, incomplete or failed block, possible nerve damage, local anesthetic toxicity. Chart reviewed, VS stable. Permit signed. Patient in preoperative room 6, stable , alert and awake, complaining 6/10 pain. Time out performed at 07:35. Oxygen 3L via NC. Right side of the neck was prepped with Chloraprep x 1 and allowed to dry. Midazolam IV 6 mg and 50 mcg Fentanyl given incrementally per patient anxiety. Under aseptic technique, the brachial plexus was identified under ultrasound prior to needle insertion. Local infiltration with 2mls of 1% Lidocaine. 2" Stimuplex needle #22 G was inserted under US guidance. Neuromuscular response of biceps contraction and forearm twitching elicited at 0.6 mA. Under direct visualization of needle tip the injection of 10 ml of 2% PF Lidocaine wth 1:200k epinephrine mixed with 1o ml of 0.75% Bupivacaine with 1:200k epinephrine, with addition of 8 mg of Dexamethasone and 40 mcg of Dexmedetomidine (total of 22 mls) in divided doses, maintaining negative aspiration was completed without problems. No local anesthetic toxicity was noted. Patient is awake, stable and tolerated the procedure well. Additional 50 mcg Fentanyl given en route to OR. Please see the attached U/S image Time: 07:35 - 07:50 Luca Zarco CRNA
[2020-08-13] MEDS ORDERED: Lactated Ringers 1,000 ML ONE (09:35)
[2020-08-13] MEDS ORDERED: Propofol 200 MG/20 ML SDV ONE (10:05)
--- NOTE | 2020-08-13 12:38 | CR ---
Right shoulder: 12 fluoroscopic spot views were obtained of the right shoulder. Comparison: Prior right shoulder plain film study of 08/04/[address] study of 08/04/20. Final film shows placement of plate and screws across the fracture. Fluoroscopy time is given as 256.7 seconds. Alignment appears anatomic. Impression: 1. Procedural study involving previous proximal humeral fracture. Diagnostic code #2
[2020-08-13 12:43] VITALS: BP 165/95; PULSE 89
--- NOTE | 2020-08-13 13:26 | PCM48HPAN ---
Post Anesthesia Note - EVALUATION WITHIN 48HRS OF ANESTHETIC Vital Signs in Normal Range: Yes Patient Participated in Evaluation: Yes Respiratory Function Stable: Yes Airway Patent: Yes Cardiovascular Function Stable: Yes Hydration Status Stable: Yes Pain Control Satisfactory: Yes Nausea and Vomiting Control Satisfactory: Yes Mental Status Recovered: Yes Vital Signs: Postprocedure Vital Signs at 10:45 143/83 92 HR 16 RR 97% on 2L 97.5F
--- NOTE | 2020-08-25 10:25 | PCM.OPNOTE ---
- General Post-Op/Procedure Note Date of Surgery/Procedure: 08/13/20 Operative Procedure(s): open reduction internal fixation right proximal humerus fracture Pre Op Diagnosis: right proximal humerus fracture Post-Op Diagnosis: Same Anesthesia Technique: MAC, Regional Block Primary Surgeon: Marino Ovalles Anesthesia Provider: Luca Zarco Crm System Administrator: Ashley Merchant EBL in mLs: 150 Complications: None Condition: Good
--- NOTE | 2020-08-25 11:07 | OR ---
DATE OF OPERATION: 08/13/2020 SURGEON: Marino Ovalles MD OPERATION PERFORMED: Open reduction and internal fixation of right 3-part proximal humerus fracture. PREOPERATIVE DIAGNOSIS: Right 3-part proximal humerus fracture. POSTOPERATIVE DIAGNOSIS: Right 3-part proximal humerus fracture. ANESTHESIA: MAC with regional block. ANESTHESIA PROVIDER: Nya Casey. GUT SNATCHER: Ashley Merchant PA-C ESTIMATED BLOOD LOSS: 150 mL. COMPLICATIONS: None. CONDITION: Stable. DESCRIPTION OF PROCEDURE: The patient was identified in the preop holding area. Proper site was marked and identified by the surgeon. The patient was taken back to the operating theater, where after adequate anesthesia, the patient's right upper extremity was sterilely prepped and draped in the usual sterile fashion. OR time-out was performed. The patient received 2 g IV Ancef. At this time, a C-arm fluoroscopy was utilized. It was noted to be a stable fracture other than the greater tuberosity fragment. At this time, I decided to do a lateral approach to the proximal humerus. A longitudinal incision was made centered from the tip of the acromion down 5 cm from that making sure to stop there, so we would not devitalize the anterior deltoid from the axillary nerve. The deltoid fibers were split in line and the subacromial space was identified. Curette and rongeur were used to remove fracture hematoma. I was able to find the greater tuberosity fragment, which was posterior. It was noted to be significantly scarred in. Secondary to the patient's fracture pattern, it was a very difficult fracture for this type of fracture. At this time, a K-wire was utilized to find good positioning of the greater tuberosity fragment utilizing C- arm fluoroscopy on both AP and lateral views. Subsequently to the plate not fitting through the small incision though I had to take the K-wire out, I then was able to hold it in place and placed the plate and then K-wires through the plate. Again, it was significantly difficult secondary to the small and nondisplaced as well as the fracture pattern. At this time, I was able to place a 3.5 cortical screw in the shaft to affix the plate. I was able to put a stitch through the greater tuberosity fragment. Once I was able to do this, we placed 4 proximal humeral locking screws which went across the humeral neck fracture as well and through the tuberosity fragment. It had anatomic reduction on AP and lateral views. I looked for signs of impingement. There were no signs of impingement. We did place 2 cortical screws distally again making sure not to devitalize the tissue any further to protect the axillary nerve. Once this was completed, it was found to have anatomic alignment. No signs of impingement through full range of motion. Adequate saline was irrigated through the wound. 2-0 Vicryl was used subcutaneously and Monocryl with Dermabond was used for closure of the skin. The patient had a sterile soft dressing applied as well as a pillow sling and sent to the PACU in stable condition. MMSEEMA /[id number] MTDD
== END 2020-08-13 13:06 | disposition home or self-care (01) ==
LOC: JD.SDS 07:12
PROVIDERS: ATTEND Orthopaedic Surgery
DX: S42.201A Unspecified fracture of upper end of right humerus, initial encounter for closed fracture (principal); I10 Essential (primary) hypertension; M81.0 Age-related osteoporosis without current pathological fracture; R93.7 Abnormal findings on diagnostic imaging of other parts of musculoskeletal system; Z88.6 Allergy status to analgesic agent; Z88.8 Allergy status to other drugs, medicaments and biological substances; Z79.899 Other long term (current) drug therapy; Z87.01 Personal history of pneumonia (recurrent); W19.XXXA Unspecified fall, initial encounter
CPT/HCPCS: 23615; 76000; 87641; C1713; J0690; J1100; J2250; J2405; J2704; J3010; J3490; J7120; 01744; 64415; J3370